=== PATIENT | female | born 1985 | race Hispanic/Latino ===

== ENCOUNTER 2018-08-06 14:46 | Emergency (ER) | payer SELFPAY ==
[~2018-08-06] VITALS: Ht 162.6 cm; Wt 88.8 kg
[2018-08-06] MEDS ORDERED: CORTISPORIN OTI10 M2 AS (15:14)
[2018-08-06] MEDS ORDERED: AMOXICILLIN875 MG PO (15:14)
[2018-08-06 15:20] VITALS: BP 130/85
== END 2018-08-06 15:20 | disposition home or self-care (01) | DRG 156 ==
LOC: ED 14:46
DX: H60.92 Unspecified otitis externa, left ear (principal); H66.92 Otitis media, unspecified, left ear